=== PATIENT | male | born 1975 | race Two or more races ===

== ENCOUNTER 2017-10-17 14:38 | Emergency (ER) | payer OTHER ==
--- NOTE | 2017-10-17 15:25 | EDM.PDOC ---
ED HPI GENERAL MEDICAL PROBLEM - General Chief Complaint: Upper Extremity Injury/Pain Stated Complaint: RIGHT THUMB SWOLLEN Time Seen by Provider: 10/17/17 15:25 Source of Information: Reports: Patient, RN Notes Reviewed History Limitations: Reports: No Limitations - History of Present Illness INITIAL COMMENTS - FREE TEXT/NARRATIVE: HISTORY AND PHYSICAL: []42-year-old male presenting with right thumb pain History of Present Illness: []Patient was lifting at work yesterday and felt thumb pain after this presents today with edema and pain No cough, cold, fever, or sore throat Review of Systems: As per history of present illness and below otherwise all systems reviewed and negative. Past medical history: As per history of present illness and as reviewed below otherwise noncontributory. Surgical history: As per history of present illness and as reviewed below otherwise noncontributory. Social history: No reported history of drug or alcohol abuse. Family history: As per history of present illness and as reviewed below otherwise noncontributory. Physical exam: Alert pleasant gentleman who states he takes blood pressure medication otherwise does not take anything and denies having any illnesses HEENT: Atraumatic, normocehpalic, pupils reactive, negative for conjunctival pallor or scleral icterus, mucous membranes moist, throat clear, neck supple, nontender, trachea midline. Lungs: Clear to auscultation, breath sounds equal bilaterally, chest non tender. Heart: S1S2, regular, negative for clicks, rubs, or JVD. Abdomen: Soft, nondistended, nontender. Negative for masses or hepatossplenmegaly. Negative for costovertebral tenderness. Pelvis: Stable nontender. Genitourinary: Deferred. Rectal: Deferred Extremities: Atraumatic, negative for cords or calf pain. Mild edema noted to the base of his right thumb he does have full range of motion sensation is intact Refill is less than 2 seconds Neurovascular unremarkable. Neuro: Awake, alert, oriented. Cranial nerves II through XII unremarkable. Cerebellum unremarkable. Motor and sensory unremarkable throughout. Exam nonfocal. Discussed with the patient that there is no fracture or dislocation noted is an overuse injury for which he is now still taxing with his right thumb and left thumb at the same time. Recommended that he stop taking as much and using this thumb did let the edema settle down. Diagnostics: []Xray right thumb Therapeutics: [] Impression: []Tendinitis Plan: []Discharged home Prescription has been written for prednisone 20 mg one twice daily for the next 5 days to help reduce the swelling Follow up with your primary care provider in a week Definitive disposition and diagnosis as appropriate pending reevaluation and review of above. Onset: Today, Sudden Duration: Day(s):, Getting Worse Location: Reports: Upper Extremity, Right Quality: Reports: Ache Severity: Moderate Improves with: Reports: None Worsens with: Reports: None Associated Symptoms: Reports: No Other Symptoms Right 1-Thumb Pain Score (Numeric/FACES): 5 - Related Data Allergies Allergy/AdvReac Type Severity Reaction Status Date / Time Sulfa (Sulfonamide Allergy Other Verified 10/17/17 14:56 Antibiotics) Home Meds: Home Meds Losartan [Cozaar] 50 mg PO DAILY 10/17/17 [History] Past Medical History Cardiovascular History: Reports: Hypertension - Infectious Disease History Infectious Disease History: Reports: None Social & Family History - Family History Family Medical History: Noncontributory - Tobacco Use Smoking Status *Q: Never Smoker - Caffeine Use Caffeine Use: Reports: None - Recreational Drug Use Recreational Drug Use: No Review of Systems - Review of Systems Review Of Systems: ROS reveals no pertinent complaints other than HPI. ED EXAM, GENERAL - Physical Exam Exam: See Below (See dictation) Course - Vital Signs Last Recorded V/S: Last Vital Signs Temp 36.9 C 10/17/17 14:57 Pulse 80 10/17/17 14:57 Resp 16 10/17/17 14:57 BP 142/81 H 10/17/17 14:57 Pulse Ox 97 10/17/17 14:57 - Orders/Labs/Meds Orders: Active Orders 24 hr Category Date Time Status Fingers Thumb Rt F5 [CR] Stat Exams 10/17/17 15:34 Taken Departure - Departure Time of Disposition: 16:30 Disposition: Home, Self-Care 01 Condition: Good Clinical Impression: Tendinitis - Discharge Information Referrals: PCP,None [Primary Care Provider] - Forms: ED Department Discharge Additional Instructions: The following information is given to patients seen in the emergency department who are being discharged to home. This information is to outline your options for follow-up care. We provide all patients seen in our emergency department with a follow-up referral. The need for follow-up, as well as the timing and circumstances, are variable depending upon the specifics of your emergency department visit. If you don't have a primary care physician on staff, we will provide you with a referral. We always advise you to contact your personal physician following an emergency department visit to inform them of the circumstance of the visit and for follow-up with them and/or the need for any referrals to a consulting specialist. The emergency department will also refer you to a specialist when appropriate. This referral assures that you have the opportunity for followup care with a specialist. All of these measure are taken in an effort to provide you with optimal care, which includes your followup. Under all circumstances we always encourage you to contact your private physician who remains a resource for coordinating your care. When calling for followup care, please make the office aware that this follow-up is from your recent emergency room visit. If for any reason you are refused follow-up, please contact the [facility] emergency department at and asked to speak to the emergency department charge nurse. He declined the offer of a splint to help keep this immobilized It is on 20 mg twice a day for 5 days written prescription Follow-up with your primary care provider Return to the emergency department if symptoms worsen - My Orders Last 24 Hours: My Active Orders 10/17/17 15:34 Fingers Thumb Rt F5 [CR] Stat - Assessment/Plan Last 24 Hours: My Active Orders 10/17/17 15:34 Fingers Thumb Rt F5 [CR] Stat
--- NOTE | 2017-10-18 07:26 | CR ---
EXAM DATE: 10/17/17 PATIENT'S AGE: 42 Patient: SHAHRAM MONTALVO Facility: [place], [place] Site . Site : [id number] Study: XRay Extremity Right thumb [id number]/[id number] 3:56:26 PM Ordering Physician: Doctor Guzmán Final Report: HISTORY: Edema, no injury. FINDINGS: Three views of the right thumb demonstrates normal bone mineralization. There is normal alignment present. No fracture or dislocation seen. No radiopaque foreign body. Joint spaces are maintained. IMPRESSION: No bony abnormality within the right thumb. Dictated by Renetta Boucher MD @ 10/17/2017 4:10:11 PM Dictated by: Renetta Boucher MD @ 10/17/2017 16:10:14 (Electronic Signature) Report Signed by Proxy. [email or web address]
== END 2017-10-17 16:50 | disposition home or self-care (01) ==
LOC: MW.ED 14:38
DX: M77.9 Enthesopathy, unspecified (principal); I10 Essential (primary) hypertension; Z88.2 Allergy status to sulfonamides
CPT/HCPCS: 73140-26-F5; 73140-F5; 99283